=== PATIENT | male | born 1985 | race Caucasian/White ===

== ENCOUNTER 2020-04-25 10:00 | Emergency (ER) | payer OTHER, MEDICAID, SELFPAY ==
[2020-04-25 10:05] VITALS: BP 163/85; PULSE 74; PULSE 82; RESP 15; TEMP 37.2; O2SAT 98; O2SAT 99; BMI 24.4
--- NOTE | 2020-04-25 10:16 | PC.NURSE ---
Pt denies dizziness but states he has an achy lower abdomen.
[2020-04-25 10:21] LABS: Add Manual Diff / Slide Review NO; Basophils Absolute Auto 0 /uL (0-100); Basophils Percent Auto 0.7 % (0-2); Eosinophils Absolute Auto 200 /uL (0-450); Eosinophils Percent Auto 5.1 % (2-4); Hematocrit 47.3 % (41-53); Hemoglobin 16.6 g/dL (13.5-17.5); Lymphocytes Absolute Auto 1000 /uL (1100-4500); Lymphocytes Percent Auto 25.7 % (25-40); Mean Corpuscular HGB Conc 35.1 % (30-36); Mean Corpuscular Hemoglobin 33.4 PG (26-34); Mean Corpuscular Volume 95.1 fL (80-100); Monocytes Absolute Auto 300 /uL (0-900); Monocytes Percent Auto 8.8 % (3-14); Neutrophils Absolute Auto 2200 /uL (1500-7000); Neutrophils Percent Auto 59.7 % (50-75); Platelet Count 199 X10^3/uL (150-400); Red Blood Cell Count 4.97 X10^6/uL (4.5-5.9); Red Cell Distribution Width 12.7 % (11.6-14.8); White Blood Cell Count 3.8 X10^3/uL (4.5-11.0)
[2020-04-25 10:23] LABS: INR 0.9 (0.9-1.3); Prothrombin Time 10.7 SECONDS (10.1-12.7)
[2020-04-25 10:25] LABS: PTT Partial Thromboplastin Tim 31 SECONDS (26.4-36.2)
[2020-04-25 10:28] LABS: Alanine Aminotransferase 17 IU/L (<50); Albumin 4.8 g/dL (3.5-5.0); Albumin Globulin Ratio 1.8 (1.0-2.8); Alkaline Phosphatase 51 U/L (38-126); Aspartate Aminotransferase 32 IU/L (17-59); BUN Creatinine Ratio 14.7 (6-22); Bilirubin Total 0.6 mg/dL (0.2-1.3); Blood Urea Nitrogen 14 mg/dL (9-20); Calcium 9.7 mg/dL (8.4-10.2); Carbon Dioxide 26 mmol/L (22-32); Chloride 106 mmol/L (98-107); Estimated Glomerular Filt Rate > 60.0 mL/min (>60); Globulin 2.6 g/dL (1.7-4.1); Glucose 106 mg/dL (70-100); HEMOLYSIS < 15 (0-50); Potassium 4.1 mmol/L (3.4-5.1); Sodium 140 mmol/L (137-145); Total Protein 7.4 g/dL (6.3-8.2)
--- NOTE | 2020-04-25 10:36 | ED_ITS ---
HPI - GI Bleed General Chief complaint: GI Bleed Stated complaint: losing blood in stool Time Seen by Provider: 04/25/20 10:14 Source: patient Mode of arrival: Ambulatory Limitations: no limitations History of Present Illness HPI Narrative: Patient 35-year-old male who presents with rectal bleeding. He said this morning he had 2 large episodes of blood per rectum bright red toilet bowl full. He denies any abdominal pain no nausea or vomiting. He said he has had hemorrhoids in the past this is different. He is taking full dose aspirin. He has never had a colonoscopy no known history of colon cancer no family history of colon cancer or colitis. He denies any dizziness lightheadedness shortness of breath MD complaint: gross hematochezia Relieving factors: none Related Data Allergies Allergy/AdvReac Type Severity Reaction Status Date / Time No Known Drug Allergies Allergy Verified 04/25/20 10:09 Review of Systems Review of Systems Narrative: GENERAL: Denies chills, fatigue, malaise, fever, sweats, travel HEENT: Denies sinus pain, ear pain, sore throat, difficulty swallowing, neck pain RESPIRATORY: Denies dyspnea, cough, wheezing, hemoptysis, sputum. CARDIOVASCULAR: Denies chest pain, palpitations, orthopnea, edema GASTROINTESTINAL: See HPI : Denies dysuria, frequency, incontinence, hematuria, urinary retention, flank pain. MUSCULOSKELETAL: Denies weakness, joint pain, or bony pain SKIN: No rash, no erythema, no pruritus NEUROLOGIC: Denies weakness, dizziness, headache, numbness, change in speech, confusion PSYCHIATRIC: No concerning psychosocial issues. 12 point review of systems is negative except for those stated above and HPI Patient History Medical History ADHD (Acute) Hemorrhoid (Acute) Social History Smoking Status: Current every day smoker Smoking Status: Current every day smoker alcohol intake frequency: 0-2 drinks per day Alcohol type: beer Substance Use Type: does not use Exam Initial Vital Signs Initial Vital Signs: Vital Signs Temperature 99.0 F 04/25/20 10:05 Pulse Rate 82 04/25/20 10:05 Respiratory Rate 15 04/25/20 10:05 Blood Pressure 163/85 H 04/25/20 10:05 Pulse Oximetry 99 04/25/20 10:05 GENERAL: Well-appearing, well-nourished and in no acute distress. HEENT: Head atraumatic,EOMI, pupils reactive, face symmetric, moist mucous membranes CARDIOVASCULAR: Regular rate and rhythm without murmurs, rubs or gallops. RESPIRATORY: Breath sounds equal bilaterally, no wheezes rales or rhonchi. ABDOMEN: Soft, nontender. Normoactive bowel sounds all 4 quadrants. No guarding or rebound. RECTAL: No stool or gross blood hemorrhoids present EXTREMITIES: Normal range of motion, no clubbing or edema. Neurovascularly intact NEUROLOGICAL: Alert and oriented x4.Normal gait and speech. Cranial nerves II through XII grossly intact. SKIN: Warm, dry, no laceration, no petechiae, no rashes or lesions. Course Orders Ordered: ED Orders 04/25/20 10:05 Complete Blood Count AUTO DIFF Stat Comprehensive Metabolic Panel Stat Partial Thromboplastin Time Stat Prothrombin Time INR Stat 04/25/20 10:08 EKG-12 Lead Stat Discontinued Medications Pantoprazole Sodium (Protonix) 40 mg IV NOW ONE Stop: 04/25/20 10:31 Last Admin: 04/25/20 10:45 Dose: 40 mg Documented by: TADEO Vital Signs Vital signs: Vital Signs - 8 hr 04/25/20 10:05 04/25/20 11:15 Temperature 99.0 F Pulse Rate 74 70 Respiratory Rate 15 Blood Pressure 163/85 H 131/75 Pulse Oximetry 98 97 MDM - GI Bleed Lab Data Attestation: I reviewed the patient's lab results. Result diagrams: 04/25/20 10:05 04/25/20 10:05 Labs: Lab Results 04/25/20 04/25/20 04/25/20 Range/Units 10:05 10:05 10:05 WBC 3.8 L (4.5-11.0) X10^3/uL RBC 4.97 (4.5-5.9) X10^6/uL Hgb 16.6 (13.5-17.5) g/dL Hct 47.3 (41-53) % MCV 95.1 (80-100) fL MCH 33.4 (26-34) PG MCHC 35.1 (30-36) % RDW 12.7 (11.6-14.8) % Plt Count 199 (150-400) X10^3/uL Neut % (Auto) 59.7 (50-75) % Lymph % (Auto) 25.7 (25-40) % [place] % (Auto) 8.8 (3-14) % Eos % (Auto) 5.1 H (2-4) % Baso % (Auto) 0.7 (0-2) % Neut # (Auto) 2200 (9242-7860) /uL Lymph # (Auto) 1000 L (5357-2910) /uL [place] # (Auto) 300 (0-900) /uL Eos # (Auto) 200 (0-450) /uL Baso # (Auto) 0 (0-100) /uL PT 10.7 (10.1-12.7) SECONDS INR 0.9 (0.9-1.3) APTT 31 (26.4-36.2) SECONDS Sodium 140 (137-145) mmol/L Potassium 4.1 (3.4-5.1) mmol/L Chloride 106 (98-107) mmol/L Carbon Dioxide 26 (22-32) mmol/L BUN 14 (9-20) mg/dL Creatinine 0.95 (0.66-1.25) mg/dL Estimated GFR > 60.0 (>60) mL/min BUN/Creatinine Ratio 14.7 (6-22) Glucose 106 H (70-100) mg/dL Calcium 9.7 (8.4-10.2) mg/dL Total Bilirubin 0.6 (0.2-1.3) mg/dL AST 32 (17-59) IU/L ALT 17 (<50) IU/L Alkaline Phosphatase 51 (38-126) U/L Total Protein 7.4 (6.3-8.2) g/dL Albumin 4.8 (3.5-5.0) g/dL Globulin 2.6 (1.7-4.1) g/dL Albumin/Globulin Ratio 1.8 (1.0-2.8) MDM Narrative Medical decision making narrative: mically stable patient is hemodynamically stable no bloody bowel movements in the ED hemoglobin hematocrit stable at this time. He has a PCP whom he can follow up with in [place]. At this time I recommend given outpatient colonoscopy and return to ED if he should have further episodes of bloody stool or if he is becoming symptomatic I also recommend he stop taking aspirin. Discharge Plan Departure Patient Disposition: Home Clinical Impression: Painless rectal bleeding Discharge Date/Time: 04/25/20 11:16 Instructions: Gastrointestinal Bleeding Activity Restrictions/Additional Instructions: *You have been diagnosed with rectal bleeding *What to do: It is imperative that you have a colonoscopy, however at this time and does not need to be done emergently. You may experience 1 or 2 more episodes of bleeding however it should decreased significantly. If bleeding co ntinues you need to return to the ER *Continue to take medications as directed STOP TAKING ASPIRIN *Follow up with your primary care provider in 2-3 days *Return to ER if you should have persistent bleeding, abdominal pain, dizziness lightheadedness shortness of breath passing out [or] any new, worsening or concerning symptoms
[2020-04-25] MEDS: PANTOPRAZOLE 40 MG VIAL IV (10:45)
[2020-04-25 11:15] VITALS: BP 131/75; PULSE 70; O2SAT 97
== END 2020-04-25 11:16 | disposition home or self-care (01) ==
PROVIDERS: Emergency Provider Emergency Medicine
DX: K62.5 Hemorrhage of anus and rectum (principal)
CPT/HCPCS: 36415; 80053; 85025; 85610; 85730; 93005; 96374; 99284; C9113